=== PATIENT | female | born 1975 | race Hispanic/Latino ===

== ENCOUNTER 2018-07-24 22:05 | Emergency (ER) | payer OTHER | END 2018-07-24 23:23 | disposition home or self-care (01) | LOC: EDH 22:05 | DX: M79.672 Pain in left foot (principal); E11.9 Type 2 diabetes mellitus without complications; Z98.890 Other specified postprocedural states; Z72.0 Tobacco use | CPT/HCPCS: 73630 ==

== ENCOUNTER 2022-03-13 00:56 | Emergency (ER) | payer OTHER ==
[~2022-03-13] VITALS: Ht 157.5 cm; Wt 93.4 kg
[2022-03-13] MEDS: TETANUS/DIPHTHERIA TOXOID [ADULT] 0.5 ML VIAL IM ONE (03:39)
[2022-03-13] MEDS: LIDOCAINE HCL 1% 20 ML VIAL INJ ONE (03:39)
[2022-03-13] MEDS: CEFTRIAXONE 1G VIAL IVP ONE (03:39)
[2022-03-13] MEDS: IBUPROFEN 600 MG TABLET PO ONE (03:39)
[2022-03-13 03:49] VITALS: BP 139/71
[2022-03-13] MEDS ORDERED: IBUP-2070 PO (04:11)
[2022-03-13] MEDS ORDERED: AMOX-426 PO (04:11)
[2022-03-13] MEDS: BACITRACIN 1 EACH PACKET TP ONE ×2 (04:14)
== END 2022-03-13 04:38 | disposition home or self-care (01) ==
LOC: EDH 00:56
DX: S81.012A Laceration without foreign body, left knee, initial encounter (principal); S61.051A Open bite of right thumb without damage to nail, initial encounter; S51.852A Open bite of left forearm, initial encounter; S51.851A Open bite of right forearm, initial encounter; S80.12XA Contusion of left lower leg, initial encounter; I10 Essential (primary) hypertension; E78.00 Pure hypercholesterolemia, unspecified; E11.9 Type 2 diabetes mellitus without complications; Z79.1 Long term (current) use of non-steroidal anti-inflammatories (NSAID); W54.0XXA Bitten by dog, initial encounter; Y93.89 Activity, other specified; Y92.89 Other specified places as the place of occurrence of the external cause; Y99.8 Other external cause status
CPT/HCPCS: 99284; 96374; 90714; 73140; 73090; 73562; 90471; 12002; J0696